=== PATIENT | female | born 1955 | race Caucasian/White ===

== ENCOUNTER 2018-03-29 13:13 | Inpatient (IN) | payer OTHER ==
[~2018-03-29] VITALS: Ht 162.6 cm; Wt 60.8 kg
--- NOTE | ~2018-03-29 | OP ---
[address] [address] OPERATIVE REPORT Name: YESSICA NAJERA Room: [address] IN [facility]#: [id number] Admission: 03/29/18 Attend Phys: Glenn Casarez MD Discharge: Date of : 53 Report #: [id number] THIS REPORT FOR: //name// CC: Glenn Casarez [facility] physician/PCP PREOPERATIVE DIAGNOSIS: Right femoral neck fracture. POSTOPERATIVE DIAGNOSIS: Right femoral neck fracture. PROCEDURE: 1. Right total hip arthroplasty. 2. Physician directed fluoroscopy less than 1 hour. SURGEON: Adrian Atwood DO TUNNEL DRIER OPERATOR: Boris Perales DO ANESTHESIA: General and orthopedic cocktail injection intraoperatively. ANTIBIOTICS: Weight appropriate dosing of Ancef IV preoperatively. ESTIMATED BLOOD LOSS: 400 mL. Cell Saver used, 150 mL given back. FLUIDS: 1850 mL lactated Ringer's. COMPLICATIONS: None. SPECIMENS: None. DRAINS: None. CONDITION OF THE PATIENT: Stable to PACU. IMPLANTS: Biomet G7 size 52 finned acetabular shell with high wall liner placed in the anterior superior position, 36 mm ceramic head with -3 neck adapter, 11 high offset standard length stem. INDICATIONS FOR PROCEDURE: The patient was admitted to [facility]. She sustained a ground level fall after tripping over a tree deadener type thing that had been left on the floor, landed directly onto the hip and had pain and inability to bear weight. She has not had any issues prior to this. She was originally seen in consultation by my partner. I was asked to see her due to her activity level and the possibility for an anterior total hip arthroplasty. I had a long conversation with the patient and her family members, talking about the risks and complications associated with surgery and why she would be a good candidate for total hip arthroplasty[place] [address] OPERATIVE REPORT Name: YESSICA NAJERA Laith Room: [address] [facility]#: [id number] Admission: 03/29/18 Attend Phys: Glenn Casarez MD Discharge: Date of : 53 Report #: [id number] consultation note for full details of our discussion. She gave verbal and written consent to proceed. DESCRIPTION OF PROCEDURE: I marked the right lower extremity in the presence of the operative team members. Everyone agreed this was correct. She was taken back to the operative suite where a briefing was performed indicating correct patient, procedure, site, antibiotics and that implants were present and sterile. All team members agreed. A general anesthetic was administered and she was then transferred over to the operative table supine, well-padded and secured. Right lower extremity was sterilely prepped and draped in standard fashion. Timeout was performed indicating correct patient, procedure, site, antibiotics and that implants were present and sterile. All team members agreed. Marked out our incision for an anterior approach, scalpel through skin, careful soft tissue dissection down to the fascial layer, which was incised with a secondary scalpel. Plane between the tensor and sartorius was identified. We then found her lateral femoral circumflex vessels, cauterized these with Aquamantys and cautery. We went onto the superior aspect of the neck where we placed a retractor, cleaned off the inferior aspect of the neck, we placed a retractor then released the rectus off the capsule and we were placed a retractor over the brim of the anterior acetabulum. Aquamantys and cautery were used to perform an anterior capsulectomy. We visualized the hematoma from her fracture site. Bone looked normal. This was just a fracture from fall. No concerning signs seen. At that point in time, we then cleaned up our neck cut, being one fingerbreadth above the lesser with an oscillating saw. We removed the neck and head. Sized the head on the back table to be a 48. We repositioned our retractors, removed any soft tissue from within the acetabulum including the ligamentum and remaining labrum, began reaming. We started with a 46 sequentially worked our way up to a size 51 reamer. We looked at our last reamer under fluoroscopy and confirmed this would be the appropriate size. When engaging the 51 reamer, it had excellent grab within the acetabulum. At that point in time, we performed an implant timeout where the final G7 size 52 finned shell was thrown on the back table. We repositioned our retractors, thoroughly irrigated with normal saline, cleaned bone surface. There was good bleeding bone, passed the sclerotic margins. We implanted our cup. Our cup was sitting in the appropriate amount of anteversion and inclination, confirmed by direct visualization, the external aiming guide as well as C-arm fluoroscopy. Once this had been fully seated and engaged, it had excellent grab within the acetabulum. We removed the arm, drilled and placed one screw. The screw had excellent purchase. We left the remaining holes covered and filled our manhole cover. Implant timeout was performed where we approved and threw our liner. This was a high wall. The high wall was placed in an anterior superior position, malleted into position. All tabs were engaged and it was fully seated. At this point in time, we turned our attention to the femur. Using the table, we performed only releases where necessary to gain access to the femur and with using the aid of the table, we were able to see the femur very nicely, began with a rat tail rasp, box osteotome and sequentially broaching from a [address] [address] OPERATIVE REPORT Name: YESSICA NAJERA Room: [address] IN [facility].#: [id number] Admission: 03/29/18 Attend Phys: Glenn Casarez MD Discharge: Date of : 53 Report #: [id number] to a size 11. The 11 had good fit and fill. At that point in time, we trialed the standard neck with a -3 head. Reduced the hip. Prior to x-raying, we removed the leg by taking the boot out. Took the leg through a full range of motion including full flexion, internal and external rotation. We also took the hip into an extreme extension and external rotation. There was no instability throughout any of these planes. Reengaged the boot to the table, changed gloves, irrigated throughout the surgical site, brought in C-arm, stem was excellent and fit. Leg lengths were appropriate. The offset was a little narrow when compared to the contralateral. We would need a high offset stem. At this point in time, we dislocated the hip, reengaged retractors and the use of the table to gain access to the femur, checked the stability of the stem. After that, it was still sitting very nicely with no rotational instability. At that point in time, we then performed an implant timeout where we threw the 11 standard length stem with high offset, irrigated thoroughly down the femoral canal, implanted our final stem. This was sitting in the exact same location as our trial stem in regards to the level of the calcar and had a great fit. At that point in time, we knew that our lengths were appropriate based off our trialing; therefore, we performed an implant time-out and threw the 36 mm ceramic head with a -3 neck adaptor. This was engaged by the Crump taper, confirmed by not being able to remove after malleting it on. All final components were in place at this time. We reduced the hip. We disengaged the boot from the table, took through all planes of range of motion including an extreme external rotation and extension. No instability whatsoever. Reengaged the boot to the table, changed gloves, irrigated throughout the surgical site. Saved final C-arm images showing excellent position of implants, no fracture or dislocation. Orthopedic cocktail was injected, reirrigated with normal saline. Closure was with 0 Vicryl [id number] interrupted for tag sutures of the fascia and then oversewn with a #2 Stratafix deep. Irrigated the subcutaneous layer with normal saline and then this was closed with 2-0 Monocryl buried deep in a running subcuticular Stratafix suture. Debriefing was performed where we confirmed the procedure, blood loss and that all counts were correct and final. All team members agreed. Sterilely applied Dermabond glue. Once this was dried, a silver impregnated dressing was placed. At that point in time, drapes were taken down. She was extubated and taken to PACU in stable condition. We had checked her leg lengths after she had been transferred off the operative table to her bed and they were equal by judgment of the medial malleoli. POSTOPERATIVE COURSE EVALUATION: I spoke with her family members including the . I answered any questions they had. They were very thankful for my time and efforts. She was resting in PACU with stable vital signs. Pain controlled. Denied numbness or tingling, loss of sensation in the extremity. She was neurovascularly intact distally in that extremity. No change compared to the preoperative exam. All compartments were soft and compressible. Dressings clean, dry and intact. DVT prophylaxis will be pharmacological and mechanical. Weightbear as tolerated. No restrictions as this was an anterior approach. PACU films showed no fracture, dislocation and excellent position of [facility] [address] [facility] [place] [address] OPERATIVE REPORT Name: YESSICA NAJERA Room: [address] IN ..#: [id number] Admission: 03/29/18 Attend Phys: Glenn Casarez MD Discharge: Date of : 53 Report #: [id number] all components. I made sure the family and she have my cell phone number, encouraged them to call anytime with questions or concerns. I have signed out to my partners who will be covering for me here over the next couple of days. I am immediately available by phone. By: 1817 192Claritza Atwood DO /joe
[2018-03-29 13:15] VITALS: BP 182/91
[2018-03-29] MEDS ORDERED: NOHOMEMEDICATIONS (13:18)
[2018-03-29 13:43] LABS: ABSOLUTE BASOPHILS 0.1 thou/uL (0.0-0.2); ABSOLUTE EOSINOPHILS 0.2 thou/uL (0.0-0.7); ABSOLUTE LYMPHOCYTES 2.2 thou/uL (0.8-5.3); ABSOLUTE MONOCYTES 0.5 thou/uL (0.0-1.2); ABSOLUTE NEUTROPHILS 5.3 thou/uL (1.6-8.1); BASOPHILS 0.8 %; HEMATOCRIT 40.8 % (37.0-47.0); LYMPHOCYTES 26.8 %; MCH 30.6 pg (26.0-34.0); MCHC 34.3 g/dL (28.0-37.0); MCV 89.3 fL (80.0-100.0); MONOCYTES 6.3 %; NUCLEATED RBCS 0 /100WBC; PLATELET COUNT* 273 thou/uL (150-400); POLYS 63.1 %; RBC 4.57 mil/uL (4.20-5.00); RDW-CV 11.8 % (10.5-14.5); WBC 8.4 thou/uL (4.0-11.0)
[2018-03-29 13:54] LABS: ANION GAP 7 mmol/L (7-16); BUN 17 mg/dL (7-18); CHLORIDE 103 mmol/L (98-107); CO2 28 mmol/L (21-32); CREATININE 0.8 mg/dL (0.6-1.3); GLUCOSE 133 mg/dL (70-99); POTASSIUM 3.1 mmol/L (3.5-5.1); SODIUM 138 mmol/L (136-145)
[2018-03-29 13:58] LABS: URINE BILIRUBIN NEGATIVE (Negative); URINE BLOOD TRACE (Negative); URINE CLARITY CLEAR; URINE COLOR YELLOW; URINE GLUCOSE-RANDOM NEGATIVE (Negative); URINE KETONES NEGATIVE (Negative); URINE LEUKOCYTES-REFLEX NEGATIVE (Negative); URINE NITRITE-REFLEX NEGATIVE (Negative); URINE PROTEIN NEGATIVE (Negative); URINE UROBILINOGEN 0.2 E.U./dl (0.2-1.0)
[2018-03-29 14:01] LABS: ALBUMIN 3.9 g/dL (3.4-5.0); ALKALINE PHOSPHATASE 96 U/L (46-116); SGOT 19 U/L (15-37); SGPT 22 U/L (30-65); TOTAL BILIRUBIN 0.4 mg/dL (<0.1-1.0); TOTAL PROTEIN 7.3 g/dL (6.4-8.2); TROPONIN-I LEVEL <0.06 ng/mL (<0.06)
[2018-03-29 14:49] LABS: APTT 23.9 Seconds (25.0-31.3); PROTIME 10.3 Seconds (9.20-11.50)
[2018-03-29 15:23] VITALS: BP 193/85
[2018-03-29 15:46] VITALS: BP 180/87
--- NOTE | 2018-03-29 17:35 | NUR ---
PATIENT IS ALERT AND ORIENTED SINCE ARRIVING TO THE FLOOR FROM THE ER VIA CART. PATIENT IS BEDREST FOR RIGHT HIP FRACTURE. SABILLON IN PLACE, IV IN RIGHT AC WORKS WELL. VITAL SIGNS STABLE ON ROOM AIR. RATES PAIN AT 5 OR 6 OUT OF 10 AND DENIES THE NEED FOR PAIM MEDICATIONS AT THIS TIME. ADMISSION ASSESSMENT AND ROOM ORIENTATION DONE AND QUESTIONS ANSWERED FOR PATIENT AND DAUGHTER.
--- NOTE | 2018-03-29 17:59 | EKG ---
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1955 Requested By: Riley Jarvis Order Number: [id number] MD: Cullen Magallanes Measurements Intervals [place] Rate: 82 P: 45 CT: 160 QRS: 18 QRSD: 197 T: 42 QT: 422 QTc: 493 Interpretive Statements Sinus arrhythmia Left atrial enlargement Nonspecific intraventricular conduction delay No previous ECG available for comparison Electronically Signed On 03-29-2018 17:59:21 CDT by Cullen Magallanes [email or web address] <ELECTRONICALLY SIGNED> By: Cullen Magallanes MD, [facility] 03/29/18 1759 1341 1341 Cullen Magallanes MD, FAC /EPI
[2018-03-30] VITALS: BP 131/70
[2018-03-30 05:32] LABS: ABSOLUTE BASOPHILS 0.1 thou/uL (0.0-0.2); ABSOLUTE EOSINOPHILS 0.4 thou/uL (0.0-0.7); ABSOLUTE LYMPHOCYTES 1.8 thou/uL (0.8-5.3); ABSOLUTE MONOCYTES 0.6 thou/uL (0.0-1.2); ABSOLUTE NEUTROPHILS 4.5 thou/uL (1.6-8.1); BASOPHILS 0.9 %; EOSINOPHILS 4.9 %; HEMATOCRIT 39.7 % (37.0-47.0); HEMOGLOBIN 13.4 gm/dL (12.0-15.0); LYMPHOCYTES 24.3 %; MCH 30.7 pg (26.0-34.0); MCHC 33.7 g/dL (28.0-37.0); MCV 91.3 fL (80.0-100.0); MONOCYTES 8.1 %; MPV 7.9 fl. (7.2-11.1); NUCLEATED RBCS 0 /100WBC; PLATELET COUNT* 236 thou/uL (150-400); POLYS 61.8 %; RBC 4.35 mil/uL (4.20-5.00); WBC 7.2 thou/uL (4.0-11.0)
--- NOTE | 2018-03-30 05:34 | NUR ---
PT ALERT/ORIENTED X4. PT WITH FLUIDS INFUSING PER DR ORDER IN LT AC. PT REQUESTED PAIN MEDICATION X2 AND ONE HYDROCODONE GIVEN EACH TIME. PT ABLE TO REPOSITION HERSELF IN BED. SCD'S IN PLACE. FREQUENTLY USED ITEMS AND CALL LIGHT WITHIN REACH. SIDERAILS UPX2. WILL CONTINUE TO MONITOR.
[2018-03-30 05:56] LABS: CALCIUM 8.5 mg/dL (8.5-10.1); CREATININE 0.8 mg/dL (0.6-1.3)
[2018-03-30 06:00] LABS: POTASSIUM 4.3 mmol/L (3.5-5.1)
[2018-03-30 08:56] VITALS: BP 166/83
[2018-03-30 13:01] VITALS: BP 166/83
--- NOTE | 2018-03-30 14:12 | NUR ---
CM ATTEMPTED TO SEE PT. SHE WAS IN SURGERY. CM WILL SEE TOMORROW.
--- NOTE | 2018-03-30 18:52 | NUR ---
PATIENT LEFT UNIT AT 1300 FOR THE PACU. ALERT AND ORIENTED X4. PATIENT WAS ON BEDREST AT THE TIME. SABILLON IN PLACE AND DRAINING. IV PATENT AND INFUSING. PAIN BEING MANAGED WITH IV PAIN MEDICATION. DENIES NAUSEA. VSS ON ROOM AIR. HOURLY ROUNDS HAVE BEEN MAINTAINED. PATIENT WAS TRANSFERRED TO [facility] ROOM 114.
[2018-03-30 18:57] VITALS: BP 150/67
--- NOTE | 2018-03-30 18:57 | NUR ---
PT TO FLOOR S/P R TOTAL HIP. PT DENIES PAIN CURRENTLY, SITTING UP IN BED, FAMILY AT BEDSIDE. DRESSING TO R HIP CDI. PT ABLE TO MAKE NEEDS KNOWN, CALL LIGHT IN REACH
[2018-03-30 21:00] VITALS: BP 150/67
[2018-03-31] VITALS (7 sets, daily range): BP systolic 112–151; BP diastolic 61–64
[2018-03-31 05:08] LABS: ABSOLUTE LYMPHOCYTES 1.5 thou/uL (0.8-5.3); ABSOLUTE MONOCYTES 0.9 thou/uL (0.0-1.2); ABSOLUTE NEUTROPHILS 7.8 thou/uL (1.6-8.1); BASOPHILS 0.2 %; EOSINOPHILS 0.3 %; HEMATOCRIT 37.5 % (37.0-47.0); HEMOGLOBIN 12.7 gm/dL (12.0-15.0); LYMPHOCYTES 14.9 %; MCHC 33.8 g/dL (28.0-37.0); MCV 91.7 fL (80.0-100.0); MONOCYTES 8.8 %; MPV 7.7 fl. (7.2-11.1); NUCLEATED RBCS 0 /100WBC; PLATELET COUNT* 213 thou/uL (150-400); POLYS 75.8 %; RBC 4.09 mil/uL (4.20-5.00); RDW-CV 11.8 % (10.5-14.5); WBC 10.3 thou/uL (4.0-11.0)
[2018-03-31 05:27] LABS: ALBUMIN 3.2 g/dL (3.4-5.0); CALCIUM 8.6 mg/dL (8.5-10.1); CREATININE 0.7 mg/dL (0.6-1.3); TOTAL BILIRUBIN 0.7 mg/dL (<0.1-1.0)
--- NOTE | 2018-03-31 08:37 | NUR ---
PATIENT HAS SLEPT WELL THROUGHOUT THE NIGHT. VSS ON 2L 02 VIA NASAL CANNULA. SABILLON TO DEPENDENT DRAINAGE WITH YELLOW URINE OUTPUT. DRESSING TO RIGHT HIP IS C/D/I, AND SCD'S IN PLACE. IV IN RIGHT WRIST-LR @ 75ML/HR. IV ABT GIVEN WITHOUT ANY ADVERSE SIDE EFFECTS NOTED. PATIENT INSTRUCTED TO USE CALL LIGHT WHEN NEEDING ASSISTANCE. HOURLY ROUNDS MADE. WILL CONTINUE WITH PLAN OF CARE AND NURSING TO MONITOR.
[2018-03-31] MEDS ORDERED: NORCO 5-325 TA1 EACH PO (13:41)
[2018-03-31] MEDS ORDERED: OXYCODONE HCL 55 MG PO (13:48)
[2018-03-31] MEDS ORDERED: ELIQUIS2.5 MG PO (13:52)
--- NOTE | 2018-03-31 16:00 | NUR ---
SPOKE WITH PT. AND DAUGHTER. PT.LIVES WITH HER . HE CAN ASSIST HER AT HOME. HAS 2 DAUGHTERS AND 2 GRANDAUGHTERS WHO ARE VERY HELPFUL AND SUPPORTIVE. NORMALLY PT.IS INDEPENDENT. SHE USED NO DME. HAS BORROWED A FWW FROM A FRIEND FOR HOME USE. CM HAD CALLED IN ELIQUIS PRESCRIPTION WRITTEN TO HER PHARMACY-[facility] ON [address] COPAY FOR ELIQUIS WAS $171. PT.SAID SHE COULD AFFORD IT. GAVE HER COUPON FOR ELIQUIS TO USE FOR FREE 30 DAY SUPPLY. PER [facility], PTS INSURANCE HAS NO HOME HEALTH BENEFITS. IT IS A LIMITED [employer] POLICY. INFORMED PT. SHE SAID SHE WOULD WALK AROUND HER HOUSE FOR HER EXERCISE. SHE DENIED ANY FURTHER DISCHARGE NEEDS.
--- NOTE | 2018-03-31 17:21 | NUR ---
PT IS ALERT AND ORIENTED X 4. DENIES NAUSEA. PAIN MANAGED WITH OXYCONDONE-/. MEPILEX DRESSING C/D/I ON RIGHT THIGH. OXYGEN DISCONTINUE-PLACED ON RA. PT WEARING BILAT SCDS. PARTICIPATED IN THERAPIES. AMBULATED WITH SBA X 1 WITH GAIT BELT AND WALKER. VS STABLE. IV REMOVED. PT GIVEN DISCHARGED INSTRUCTIONS AND PRESCRIPTIONS. PT LEFT UNIT BY WHEELCHAIR WITH PERSONAL BELONGINGS TO LEAVE BY PRIVATE CAR @ 3933.
== END 2018-03-31 16:27 | disposition home or self-care (01) | DRG 470 ==
LOC: M.ERS 13:13 → M.3W 14:07 → M.TBA-ER 14:07 → M.3W 15:03 → M.ORTHSURG 03-30 18:50
PROVIDERS: Family Medicine; ADMIT Internal Medicine
PROC: 0SR903Z Replacement of Right Hip Joint with Ceramic Synthetic Substitute, Open Approach (ICD-10-PCS; principal; 2018-03-30)
DX: S72.011A Unspecified intracapsular fracture of right femur, initial encounter for closed fracture (principal); W01.0XXA Fall on same level from slipping, tripping and stumbling without subsequent striking against object, initial encounter; I10 Essential (primary) hypertension; E87.6 Hypokalemia; Y93.89 Activity, other specified; Y92.59 Other trade areas as the place of occurrence of the external cause; Y99.8 Other external cause status